=== PATIENT | female | born 1940 | race Caucasian/White ===

== ENCOUNTER 2024-01-12 13:29 | Outpatient (AMB) | payer MEDICARE, SELFPAY ==
[2024-01-12 13:35] VITALS: BP 136/80; PULSE 60; BMI 23.1
--- NOTE | 2024-01-12 13:35 | A.OFFVIS_ITS ---
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 Intake Note: New patient dx HTN had afib last 2012 but had ablation in [place] Display Coordinator Required: No Allergies No Known Allergies Allergy (Verified 01/12/24 13:40) Medication List - Last Reconciled 01/12/24 by Jose Urias MD amlodipine 5 mg PO DAILY aspirin 81 mg PO DAILY irbesartan 300 mg PO DAILY magnesium glycinate mg PO metoprolol tartrate 50 mg PO BID multivitamin 1 tab PO DAILY red yeast rice 600 mg PO DAILY turmeric root extract 1,000 mg PO DAILY HPI Comments Details: Thank you for referring Fred in cardiology consultation today for management of hypertension as well as prior history of atrial fibrillation. She has a pleasant 83-year-old active woman with no significant current symptoms. She has been noticing elevated blood pressure over the last few months. She has longstanding history of hypertension and is currently on triple therapy including a irbesartan 300 mg daily, amlodipine 5 mg daily as well as metoprolol 50 mg b.i.d.. In the past amlodipine was increased in late fall last year which led to leg edema and then reduction amlodipine this back to 5 mg daily. She has been noticing seeing frequently a blood pressure which she measures only in the morning after she takes medication in the 150 systolic range. She is concerned about these findings and wants to discuss further treatment options. She denies any recent changes in health. Denies any symptoms of exertional chest pain or shortness of breath. She has had history of atrial fibrillation which is highly symptomatic undergoing an ablation 2012 and since then she has not had any recurrent episodes. She has currently not on any oral anticoagulant therapy. She is on aspirin therapy. She has never had any prior vascular events. Did have a TIA in the past and this was due to atrial fibrillation she was told at that time. [facility] Medical History Paroxysmal atrial fibrillation HTN (hypertension) Hx-TIA (transient ischemic attack) Surgical History History of cardiac radiofrequency ablation Family History Father HTN (hypertension) Stroke Mother HTN (hypertension) Social History Patient Tobacco Use Status: Never used Tobacco Review of Systems Const Denies chills, Denies daytime sleepiness, Denies fatigue, Denies fever(s), Denies frequent falls, Denies poor appetite, Denies snoring, Denies stops breathing during sleep, Denies weakness, Denies weight gain and Denies weight loss Eyes Denies loss of vision ENT Denies dizziness and Denies hearing loss Card Denies chest pain, Denies claudication, Denies leg edema, Denies lightheadedness, Denies palpitations, Denies dyspnea, Denies dyspnea on exertion and Denies orthopnea Resp Denies cough, Denies excessive phlegm production, Denies dyspnea, Denies dyspnea on exertion, Denies snoring and Denies wheezing GI Denies abdominal pain, Denies hematochezia, Denies change in bowel habits, Denies nausea and Denies vomiting Denies urinary frequency and Denies dysuria Musc Denies arthralgias, Denies muscle weakness, Denies numbness and Denies other (frequent falls) Skin/Breast Denies nail changes and Denies rash Neuro Denies Abnormal speech present, Denies dizziness, Denies frequent falls, Denies loss of vision, Denies memory loss, Denies numbness and Denies weakness Psych Denies depression and Denies memory loss Endo Denies fatigue and Denies palpitations Scooter/Lymph Reports easy bruising and Reports other (anemia) Aller/Immun Denies wheezing Physical Exam Vital Signs: Last Vital Signs Pulse 60 01/12/24 13:35 BP 136/80 01/12/24 13:35 BMI result Body Mass Index 23.1 Const General: cooperative, comfortable, no acute distress, well developed, alert, awake, Physically active and well groomed Nutritional Appearance: average body habitus and well nourished Orientation/consciousness: patient oriented x3 Limitations: no limitations HEENT Head: Yes normocephalic and Yes atraumatic Neck Neck: Yes trachea midline, Yes supple and Yes no JVD Resp Effort & Inspection: normal respiratory effort Auscultation: clear to auscultation bilaterally Cardio Jugular venous distension: no JVD Palpation: normal PMI Rate: regular rate Rhythm: regular rhythm Heart sounds: S1 normal heart sound present, S2 normal heart sound present, no click, no gallops, no murmurs and no rubs GI Auscultation: normal bowel sounds Skin General skin exam: no rashes or lesions noted Neuro General: patient oriented x3 and no focal motor deficits Speech: No Abnormal speech present Extrem General: Yes no clubbing, cyanosis or edema Office Procedures EKG Details: EKG shows normal sinus rhythm with first-degree AV block with QS pattern in lead V1 V2 which could suggest anteroseptal infarct versus lead placement. [id number], Complete Assessment & Plan Assessment & Plan (1) HTN (hypertension): Code(s): I10 - Essential (primary) hypertension Category: Medical Plan: Hypertension which seems to be elevated with uncontrolled blood pressure at this point time. Management of hypertension was discussed. She has not tolerated higher dose of amlodipine in the past. Will continue current therapy and would add hydrochlorothiazide 12.5 mg to her regimen. Advise follow-up basic metabolic profile in 1-2 weeks time. Also recommend to monitor blood pressure at home various different times during the day and maintain a log and present to me in the next visit in 6 weeks time. I have advised her to undergo an echocardiogram to evaluate for LV systolic and diastolic function to evaluate for biatrial chamber size. Further treatment based on the findings. (2) Paroxysmal atrial fibrillation: Comment: Status post ablation, 2013. No clinical recurrence since then Code(s): I48.0 - Paroxysmal atrial fibrillation Category: Medical Plan: Prior history of paroxysmal atrial fibrillation with ablation 2012 with resolved symptoms. CHADSVASc score of 6, given her prior history of TIA. She is at high risk for recurrent thromboembolic complication. Aspirin is not an adequate prophylaxis. This was discussed with her. Consider oral anticoagulation therapy with Eliquis 5 mg b.i.d. given similar bleeding risk to aspirin and much superior thromboembolic protection. This was discussed with her. She will think about it. Continue aggressive blood pressure control as above. Will o btain echocardiogram as above. Avoidance of stimulants was discussed. Advised to call me with any new symptoms. Will follow up in the clinic in 6 weeks time, sooner p.r.n.. Thank you for allowing me to partake in her care Orders: Orders CA echo transthoracic complete Today I10 - Essential (primary) hypertension Medications: New hydrochlorothiazide 12.5 mg PO DAILY 30 tabs 5RF I10 - Essential (primary) hypertension Coding Level of Care Code New Pt Level 4 (99019) Diagnoses HTN (hypertension) I10 Paroxysmal atrial fibrillation I48.0 CPT Codes EKG - CPT: 04814-[id number], Complete ([id number])
== END 2024-01-12 14:25 | disposition home or self-care (01) ==
PROVIDERS: PCP Internal Medicine; Visit Provider Internal Medicine Cardiovascular Disease
DX: I10 Essential (primary) hypertension (principal); I48.0 Paroxysmal atrial fibrillation
CPT/HCPCS: 93010; 99204

== ENCOUNTER → 2024-01-12 13:29 | Outpatient (BNVA) | payer MEDICARE, SELFPAY | PROVIDERS: PCP Internal Medicine; Visit Provider Internal Medicine Cardiovascular Disease | DX: I48.0 Paroxysmal atrial fibrillation (principal); I10 Essential (primary) hypertension | CPT/HCPCS: 93005; 99202 ==

== ENCOUNTER → 2024-02-24 12:39 | Outpatient (REF) | payer MEDICARE, SELFPAY ==
--- NOTE | 2024-02-24 12:49 | CA_ITS ---
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 The visually estimated ejection fraction is >70%. - Evidence suggests grade II (moderate) diastolic dysfunction. - There is moderate septal and moderate basal asymmetric hypertrophy. - No obvious valvular pathology seen on this study. Findings Left Ventricle Normal left ventricular cavity size. The left ventricular systolic function is hyperdynamic. The visually estimated ejection fraction is >70%. There is no evidence of regional wall motion abnormalities. Evidence suggests grade II (moderate) diastolic dysfunction. There is moderate septal and moderate basal asymmetric hypertrophy. Right Ventricle Normal right ventricular cavity size and systolic function. Atria Both atria are normal in size. Aortic Valve There is a normal trileaflet aortic valve. There is no aortic valve stenosis. There is no aortic valve regurgitation. Mitral Valve The mitral valve appears normal. There is trace mitral valve regurgitation. There is no mitral valve stenosis. Pulmonic Valve The pulmonic valve is likely normal. Tricuspid Valve Normal tricuspid valve structure. There is mild tricuspid valve regurgitation. There is no evidence of pulmonary hypertension. Great Vessels The asc aorta is normal in size. Venous The inferior vena cava is normal in size and collapses greater than 50% with inspiration. Pericardium/Pleural There is no evidence of pericardial effusion. Prior Study Comparison No prior study available for comparison. Recommendations, Care & Conclusions No obvious valvular pathology seen on this study. Measurements 2D Linear Measurements IVSd: 1.04 0.6-0.9/0.6-1.0 cm LVIDd: 4.45 3.9-5.3/4.2-5.9 cm LVIDd Index: 2.65 2.4-3.2/2.2-3.1 cm/m2 LVIDs: 2.35 2.0-3.6 cm LVPWd: 0.79 0.7-1.1 cm LA Diam: 3.60 2.7-3.8/3.0-4.0 cm LAIDs Index: 2.14 1.5-2.3 cm/m2 LV Mass: 165.81 67-162/88-224 g LV Mass Index: 98.70 43-95/49-115 g/m2 LVOT Diam: 1.90 3.0+(-)1.3 cm 2D Systolic Function EF 4C: 74.70 >55% EF 2C: 74.00 >55% EF BiP: 72.80 >55% Mitral Valve MV Pk E: 1.01 MV PK A: 0.61 MV Decel Time: 173.00 E/A: 1.60 E'Lateral: 7.18 E'Medial: 4.57 E/E' Med: 22.10 E/E' Lat: 14.10 PHT: 51.00 MVA PHT: 4.31 Decel Hunt: 5.84 Aortic Valve AoV Pk Davidson: 1.45 AoV Mn Davidson: 1.07 AoV VTI: 0.38 AoV Pk Grad: 8.00 Aov Mn Grad: 5.00 DEONDRE Cont.VTI: 2.71 LVOT LVOT Pk Davidson: 1.21 LVOT Mn Davidson: 0.94 LVOT VTI: 0.36 LVOT Pk Grad: 6.00 LVOT Mn Grad: 4.00 LVOT Diam: 1.90 LVOT Area: 2.84 Diastolic Function MV Pk E: 1.01 MV Pk A: 0.61 E/A: 1.60 E'Medial: 4.57 E/E' Med: 22.10 E' Laterial: 7.18 E/E' Lat: 14.10 Right Ventricle TAPSE (mm): 19.50 TVS' Davidson: 11.40 Tricuspid Valve TR Pk Davidson: 2.13 TR Pk Grad: 18.00 RA Press: 3.00 RVSP: 21.00 Great Vessels Aorta Sinus of Valsalva: 2.94 2.0-3.[address] Ridge: 2.16 1.7-3.4 cm Ao Asc: 2.80 2.1-3.4 cm Updated in Other Vendor System with Status of Final Neo Hoyt MD electronically signed on 02/26/2024 10:40:10 AM with status of Final
== END ==
LOC: HO.CARD 12:39
PROVIDERS: Visit Provider Internal Medicine Cardiovascular Disease
DX: I10 Essential (primary) hypertension (principal)
CPT/HCPCS: 93306

== ENCOUNTER → 2024-02-24 12:49 | Outpatient (BNV) | payer MEDICARE, SELFPAY | PROVIDERS: Visit Provider Internal Medicine | DX: I36.1 Nonrheumatic tricuspid (valve) insufficiency (principal); I42.2 Other hypertrophic cardiomyopathy | CPT/HCPCS: 93306 ==

== ENCOUNTER 2024-02-28 12:40 | Outpatient (AMB) | payer MEDICARE, SELFPAY ==
--- NOTE | 2024-02-28 12:42 | MHC.OFFVIS ---
Vital Signs 02/28/24 12:43 Height 5 ft 5 in Weight 136 lb 10.986 oz BMI 22.7 BP 128/82 Blood Pressure Location Lt brachial Position Sitting Pulse 76 Intake Visit Reasons: 6 wk f/up Intake Note: 6 week follow-up feeling good Photoradio Operator Required: No Beam Department Supervisor: Beam Department Supervisor Present Accompanied by: Spouse Allergies No Known Allergies Allergy (Verified 01/12/24 13:40) Medication List - Last Reconciled 02/28/24 by Jose Urias MD amlodipine 5 mg PO DAILY aspirin 81 mg PO DAILY cholecalciferol (vitamin D3) 25 mcg PO DAILY hydrochlorothiazide 12.5 mg PO DAILY irbesartan 300 mg PO DAILY magnesium glycinate mg PO metoprolol tartrate 50 mg PO BID multivitamin 1 tab PO DAILY red yeast rice 600 mg PO DAILY turmeric root extract 1,000 mg PO DAILY HPI Comments Details: Vandana comes for follow-up. Since starting hydrochlorothiazide she says a blood pressure being in the 130s. She had been doing well. Recent echocardiogram shows hyperdynamic LVEF greater than 70% with basal ventricular hypertrophy with grade 2 diastolic dysfunction. She has no new cardiac symptoms. Denies any worsening shortness of breath, orthopnea, PND, leg edema. Denies any prolonged palpitation irregular heartbeat. Denies any exertional chest pain. No bleeding issues or new neurologic events. She has not started Eliquis therapy. [facility] Medical History Paroxysmal atrial fibrillation HTN (hypertension) Hx-TIA (transient ischemic attack) Surgical History History of cardiac radiofrequency ablation Family History Father HTN (hypertension) Stroke Mother HTN (hypertension) Social History Patient Tobacco Use Status: Never used Tobacco Review of Systems Const Denies chills, Denies fatigue, Denies fever(s), Denies frequent falls, Denies weakness, Denies weight gain and Denies weight loss ENT Denies dizziness Card Denies chest pain, Denies leg edema, Denies lightheadedness, Denies palpitations, Denies dyspnea, Denies dyspnea on exertion, Denies orthopnea and Denies other (loss of consciousness) Resp Denies cough, Denies dyspnea and Denies dyspnea on exertion GI Denies hematochezia and Denies change in stool character Musc Denies abnormal gait, Denies muscle weakness, Denies numbness, Denies radiating pain into limb and Denies tingling Neuro Denies Abnormal speech present, Denies abnormal gait, Denies dizziness, Denies frequent falls, Denies numbness, Denies tingling and Denies weakness Endo Denies fatigue and Denies palpitations Physical Exam Vital Signs: Last Vital Signs Pulse 76 02/28/24 12:43 BP 128/82 02/28/24 12:43 BMI result Body Mass Index 22.7 Const General: cooperative, comfortable, no acute distress, well developed, alert, awake, Physically active and well groomed Nutritional Appearance: average body habitus and well nourished Orientation/consciousness: patient oriented x3 Limitations: no limitations HEENT Head: Yes normocephalic and Yes atraumatic Neck Neck: Yes trachea midline, Yes supple and Yes no JVD Resp Effort & Inspection: normal respiratory effort Auscultation: clear to auscultation bilaterally Cardio Jugular venous distension: no JVD Palpation: normal PMI Rate: regular rate Rhythm: regular rhythm Heart sounds: S1 normal heart sound present, S2 normal heart sound present, no click, no gallops, no murmurs and no rubs GI Auscultation: normal bowel sounds Skin General skin exam: no rashes or lesions noted Neuro General: patient oriented x3 and no focal motor deficits Speech: No Abnormal speech present Extrem General: Yes no clubbing, cyanosis or edema Assessment & Plan Assessment & Plan (1) Paroxysmal atrial fibrillation: Comment: Status post ablation, 2012. No clinical recurrence since then Code(s): I48.0 - Paroxysmal atrial fibrillation Category: Medical Plan: Highly symptomatic paroxysmal atrial fibrillation without any obvious clinical recurrence since ablation. She is currently also on metoprolol therapy. Continue metoprolol therapy avoidance of stimulants was discussed. No indication for antiarrhythmic drug therapy unless she has recurrence. We discussed about different times of atrial fib and pathophysiology associated with it. Stroke risk was discussed. I strongly encouraged her to start taking oral anticoagulation therapy with Eliquis 5 mg b.i.d.. Similar bleeding risk to aspirin by trial data as well as much superior efficacy in reducing stroke risk was discussed with her. She wants to think about it. I have given her written prescription (2) HTN (hypertension): Code(s): I10 - Essential (primary) hypertension Category: Medical Plan: Hypertension with mild hypertensive heart disease without overt signs of congestive heart failure with grade 2 diastolic dysfunction. Importance of good blood pressure control was discussed. Continue current therapy. Advised to continue monitor blood pressure at home maintain a log. Goal blood pressure less than 130/84. Low-salt diet was discussed. Will follow up in the clinic in 1 year's time, sooner p.r.n.. Thank you for allowing me to partake in her care Medications: New apixaban (Eliquis) 5 mg PO BID 60 tabs 11RF Coding Level of Care Code Est Pt Level 4 (07894) Diagnoses Paroxysmal atrial fibrillation I48.0 HTN (hypertension) I10
[2024-02-28 12:43] VITALS: BP 128/82; PULSE 76; BMI 22.7
== END 2024-02-28 13:50 | disposition home or self-care (01) ==
PROVIDERS: PCP Internal Medicine; Visit Provider Internal Medicine Cardiovascular Disease
DX: I48.0 Paroxysmal atrial fibrillation (principal); I10 Essential (primary) hypertension
CPT/HCPCS: 99214

== ENCOUNTER → 2024-02-28 12:40 | Outpatient (BNVA) | payer MEDICARE, SELFPAY | PROVIDERS: PCP Internal Medicine; Visit Provider Internal Medicine Cardiovascular Disease | DX: I48.0 Paroxysmal atrial fibrillation (principal); I10 Essential (primary) hypertension | CPT/HCPCS: 99212 ==

== ENCOUNTER 2025-06-04 10:40 | Outpatient (AMB) | payer MEDICARE, SELFPAY ==
--- NOTE | 2025-06-04 10:48 | MHC.OFFVIS ---
Vital Signs 06/04/25 10:49 Height 5 ft 5 in Weight 138 lb 14.259 oz BMI 23.1 BP 144/76 H Blood Pressure Location Lt brachial Position Sitting Pulse 64 Intake Visit Reasons: 1 yr followup w/ekg dx: paf Intake Note: 1 year follow-up with ekg afib feeling good Tare Weigher Required: No Allergies No Known Allergies Allergy (Verified 01/12/24 13:40) Medication List - Last Reconciled 06/04/25 by Jose Urias MD amlodipine 5 mg PO DAILY apixaban (Eliquis) 5 mg PO BID cholecalciferol (vitamin D3) 25 mcg PO DAILY hydrochlorothiazide 12.5 mg PO DAILY irbesartan 300 mg PO DAILY metoprolol tartrate 50 mg PO BID multivitamin 1 tab PO DAILY HPI Comments Details: Vandana comes for follow-up, accompanied by her son. Patient denies any cardiac symptoms. She says she remains very very active and has no cardiac symptoms. No prolonged palpitation irregular heartbeat. She has stopped taking her Eliquis because she found that it was not creating any effect in her. She is only taking baby aspirin a day. She has not had any bleeding issues or neurologic events. She has had no exertional chest pain. No shortness of breath, orthopnea, PND. She says blood pressure is generally been well controlled mostly readings less than systolic 140. [facility] Medical History Paroxysmal atrial fibrillation HTN (hypertension) Hx-TIA (transient ischemic attack) Surgical History History of cardiac radiofrequency ablation Family History Father HTN (hypertension) Stroke Mother HTN (hypertension) Social History Patient Tobacco Use Status: Never used Tobacco Review of Systems Const Denies chills, Denies fatigue, Denies fever(s), Denies frequent falls, Denies weakness, Denies weight gain and Denies weight loss ENT Denies dizziness Card Denies chest pain, Denies leg edema, Denies lightheadedness, Denies palpitations, Denies dyspnea, Denies dyspnea on exertion, Denies orthopnea and Denies other (loss of consciousness) Resp Denies cough, Denies dyspnea and Denies dyspnea on exertion GI Denies hematochezia and Denies change in stool character Musc Denies abnormal gait, Denies muscle weakness, Denies numbness, Denies radiating pain into limb and Denies tingling Neuro Denies Abnormal speech present, Denies abnormal gait, Denies dizziness, Denies frequent falls, Denies numbness, Denies tingling and Denies weakness Endo Denies fatigue and Denies palpitations Physical Exam Vital Signs: Last Vital Signs Pulse 64 06/04/25 10:49 BP 144/76 H 06/04/25 10:49 BMI result Body Mass Index 23.1 Const General: cooperative, comfortable, no acute distress, well developed, alert, awake, Physically active and well groomed Nutritional Appearance: average body habitus and well nourished Orientation/consciousness: patient oriented x3 Limitations: no limitations HEENT Head: Yes normocephalic and Yes atraumatic Neck Neck: Yes trachea midline, Yes supple and Yes no JVD Resp Effort & Inspection: normal respiratory effort Auscultation: clear to auscultation bilaterally Cardio Jugular venous distension: no JVD Palpation: normal PMI Rate: regular rate Rhythm: regular rhythm Heart sounds: S1 normal heart sound present, S2 normal heart sound present, no click, no gallops, no murmurs and no rubs GI Auscultation: normal bowel sounds Skin General skin exam: no rashes or lesions noted Neuro General: patient oriented x3 and no focal motor deficits Speech: No Abnormal speech present Extrem General: Yes no clubbing, cyanosis or edema Office Procedures EKG Details: EKG shows normal sinus rhythm with sinus arrhythmias with first-degree AV block with poor R-wave progression most likely lead placement [id number], Complete Assessment & Plan Assessment & Plan (1) Paroxysmal atrial fibrillation: Comment: Status post ablation, 2013. No clinical recurrence since then Code(s): I48.0 - Paroxysmal atrial fibrillation Category: Medical Plan: Paroxysmal atrial fibrillation this elderly woman without any new symptoms. She had ablation 2013 in his no recurrence since then. She had prior history of TIA. Given her multiple risk factors she is strongly advised oral anticoagulation therapy with Eliquis to reduce further risk. We discussed the pros and cons of oral anticoagulant therapy and compared to aspirin. She understands. Avoidance of stimulants was discussed. Advised to call me with any new symptoms. Continue metoprolol therapy. Stress mitigation strategies were discussed. (2) HTN (hypertension): Code(s): I10 - Essential (primary) hypertension Category: Medical Plan: Hypertension with borderline blood pressure but mostly at home a blood pressure below systolic 140. Given her age I think systolic 140 is an adequate target for her. I would not over corrected blood pressure she would get more orthostatic symptoms. Continue current therapy. Low-salt diet was discussed. Advised to continue monitor blood pressure at home and if it is persistently elevated above systolic 150 to call my office. Will follow up in the clinic in 1 year's time, sooner PRN. Thank you for allowing me to partake in her care Medications: New aspirin (Ecotrin Low Strength) 81 mg PO DAILY 30 tabs 1RF Coding Level of Care Code Est Pt Level 4 (96933) Complex EM visit Add On G2211 Diagnoses Paroxysmal atrial fibrillation I48.0 HTN (hypertension) I10 CPT Codes EKG - CPT: 33654-[id number], Complete ([id number])
[2025-06-04 10:49] VITALS: BP 144/76; PULSE 64; BMI 23.1
--- OUTSIDE RECORDS SUMMARY | 2025-06-04 13:02 | XMS_ITS | Clinical Summary ---
Author Organization [facility] Address [address] [place] [address] Phone Care Team Providers Care Burlap Bag Sewer Name Role Phone Robert Ewing MD Primary Care Provider Allergies Active Allergy Reactions Criticality Noted Date Comments Aliskiren 12/15/2021 Simvastatin 12/15/2021 Medications No known medications Encounters Date Type Department Care Team Description 05/21/2025 2:30 PM EDT Office Visit [facility] Orthopedics & Sports Medicine [address] [place] [id number] Jasbir Davey MD Sciatica of left side (Primary Dx); Left hip pain; Osteoarthritis of left hip, unspecified osteoarthritis type 05/21/2025 10:39 AM EDT - 05/21/2025 11:59 PM EDT Hospital Encounter [address] [id number] Jasbir Davey MD Discharge Disposition: Home or Self Care from Last 3 Months Social History Tobacco Use Types Packs/Day Years Used Date Smoking Tobacco: Never Assessed Education Answer Date Recorded Are you interested in more education? Not on taj e 12/06/2022 Are you concerned about learning? Not on file 12/06/2022 No 12/06/2022 No 12/06/2022 Digital Access Answer Date Recorded No 12/27/2022 No 12/27/2022 Reliable internet access at home? Not on file 12/27/2022 Device with a working camera? Not on file Comments Unknown Sex and Gender Information Value Date Recorded Sex Assigned at Not on file Legal Sex Female 6:36 PM EST Gender Identity Not on file Sexual Orientation Not on file Last Filed Vital Signs Vital Sign Reading Time Taken Comments Blood Pressure 135/72 12/07/2011 10:55 AM EDT Pulse 74 12/07/2011 10:55 AM EDT Temperature - - Respiratory Rate - - Oxygen Saturation - - Inhaled Oxygen Concentration - - Weight 59 kg (130 lb) 12/15/2021 11:23 AM EDT Height 165.1 cm (5' 5 ) 12/15/2021 11:23 AM EDT Body Mass Index 21.63 12/15/2021 11:23 AM EDT Plan of Treatment Health Maintenance Due Date Last Done Comments Adult Td,Tdap Booster 1940 DEPRESSION SCREENING 1952 PNEUMOCOCCAL VACCINES (50+ years) (1 of 1 - PCV) 1990 ZOSTER VACCINES (1 of 2) 1990 OSTEOPOROSIS SCREENING INITI AL (ONE-TIME) 2005 RSV VACCINE (1 - 1-dose 75+ series) 2015 INFLUENZA VACCINE (#1) 2025 COVID-19 VACCINE (3 - 2024-2 6 season) 2025 03/26/2022, 03/05/2022 HEPATITIS A VACCINES Aged Out No long er eligible based on patient's age to complete this topic HIB VACCINES Aged Out No longer eligi ble based on patient's age to complete this topic MENINGOCOCCAL VACCINES (ACWY) Aged Out No longer eligible based on patient's age to complete this topic MENINGOCOCCAL VACCINES (B) Aged Out N o longer eligible based on patient's age to complete this topic Medical Devices Not on file Procedures Procedure Name Priority Date/Time Associated Diagnosis Comments XR HIP 1 VW LEFT PLUS PELVIS Routine 05/21/2025 10:47 AM EDT Left hip pain from Last 3 Months Results * XR HIP 1 VW LEFT PLUS PELVIS (05/21/2025 10:47 AM EDT) Narrative SYSTEMGENERATED, DOCUMENTATION - 05/21/2025 10:47 AM EDT This image report has been auto-finalized and has not been read by a Radiologist. Interpretation has been included in the provider encounter note for this date of service. Jasbir Davey MD IMG XR PELVIS Final R esult from Last 3 Months Insurance MEDICARE PART A & B [employer] SUPPLEMENT MEDICARE PART A & B [employer] SUPPLEMENT MEDICARE PART A & B [facility] SUPPLEMENT MEDICARE PART A & B [employer] SUPPLEMENT MEDICARE PART A & B [employer] SUPPLEMENT MEDICARE PART A & B [employer] SUPPLEMENT MEDICARE PART A & B [employer] SUPPLEMENT MEDICARE PART A & B [employer] SUPPLEMENT MEDICARE PART A & B [employer] SUPPLEMENT Care Teams Burlap Bag Sewer Relationship Specialty Start Date End Date Robert Ewing MD [address] [place] [address] PCP - General Internal Medicine 12/15/21 Additional Source Comments The information contained in this document represents components of the legal health record. It is not the complete legal health record.[facility]
--- OUTSIDE RECORDS SUMMARY | 2025-06-04 13:02 | XMS_ITS | Clinical Summary ---
Author Organization [facility] Address [address] [address] Phone Care Team Providers Care Collar Baster Name Role Phone Robert Ewing MD Primary Care Provider [phone] Allergies Active Allergy Reactions Criticality Noted Date Comments Aliskiren 12/15/2021 Simvastatin 12/15/2021 Medications amLODIPine (NORVASC) 5 MG tablet Take 1 tablet by mouth 3 Active Aspirin 81 MG capsule Take 81 mg by mouth 3 Active cefpodoxime (VANTIN) 200 MG tablet 0 Refills, Maintenance, 08/14/24 2:09:00 PM EST, Partial fill upon patient request if the prescription is for a schedule II opioid drug. 5 Active chlorthalidone 25 MG tablet Take 25 mg by mouth 4 Active irbesartan (AVAPRO) 300 MG tablet Take 1 tablet by mouth 5 Active metoprolol tartrate (LOPRESSOR) 50 MG tablet Take 50 mg by mouth 3 Active Ascorbic Acid (vitamin C) 100 MG tablet Take 100 mg by mouth 1 (one) time each day Active Cholecalciferol (Vitamin D3) 50 MCG (1999) tablet Take by mouth Active Active Problems Problem Noted Date Diagnosed Date Polyp of colon 10/06/2024 Paroxysmal atrial fibrillation 10/06/2024 Insomnia 10/06/2024 Hypertensive disorder 10/06/2024 History of cerebrovascular disease 10/06/2024 Chronic kidney disease stage 3A 10/06/2024 Transient cerebral ischemia 10/06/2024 Encounters Date Type Department Care Team Description 05/09/2025 1:00 PM EDT Office Visit [facility] [address] [phone] Yao Quintana MD Stage 3 chronic kidney disease, not otherwise specified (HCC) (Primary Dx); Hypertension; Microalbuminuria 05/07/2025 Orders Only [facility] [address] [phone] Yao Quintana MD from Last 3 Months Family History Medical History Relation Comments respiratory disease Mother Breast cancer Sister Relation Status Comments Mother Sister Social History Tobacco Use Types Packs/Day Years Used Date Smoking Tobacco: Never Smokeless Tobacco: Never Tobacco Cessation:Counseling Given: Not Answered Comments Unknown Sex and Gender Information Value Date Recorded Sex Assigned at Not on file Legal Sex Female 1:19 PM EST Gender Identity Not on file Sexual Orientation Not on file Last Filed Vital Signs Vital Sign Reading Time Taken Comments Blood Pressure 152/63 05/09/2025 12:58 PM EDT Pulse 65 05/09/2025 12:58 PM EDT Temperature - - Respiratory Rate - - Oxygen Saturation 98% 05/09/2025 12:58 PM EDT Inhaled Oxygen Concentration - - Weight 65.3 kg (144 lb) 05/09/2025 12:58 PM EDT Height - - Body Mass Index - - Plan of Treatment Upcoming Encounters Date Type Department Care Team (Late st Contact Info) Description 11/08/2025 2:45 PM EDT Office Visit [facility] [address] [phone] Yao Quintana MD [address] [phone] Health Maintenance Due Date Last Done Comments Pneumococcal Vaccine: 50+ Ye ars (1 of 2 - PCV) 1959 Influenza Vaccine (#1) 2025 Hepatitis B Vaccine Aged Out No longe r eligible based on patient's age to complete this topic Procedures Procedure Name Priority Date/Time Associated Diagnosis Comments RENAL FUNCTION PANEL Routine 05/07/2025 10:55 AM EDT from Last 3 Months Results * (ABNORMAL) Renal Function Panel (05/07/2025 10:55 AM EDT) Glucose 92 70 - 99 mg/dL [facility] BUN 31(H) 8 - 27 mg/dL [facility] Creatinine 1.60(H) 0.57 - 1.00 mg/dL [facility] eGFR CKD-EPI CR 2020 31(L) >59 mL/min/1.7 3 [facility] BUN/Creatinine Ratio 19 12 - 28 [facility] Sodium 134 134 - 144 mmol/L [facility] Potassium 4.4 3.5 - 5.2 mmol/L [facility] Chloride 96 96 - 106 mmol/L [facility] Bicarbonate (CO2) 20 20 - 29 mmol/L [facility] Calcium 9.9 8.7 - 10.3 mg/dL [facility] Albumin 4.2 3.7 - 4.7 g/dL [facility] Phosphorus 3.1 3.0 - 4.3 mg/dL [facility] 05/07/2025 10:5 5 AM EDT 05/07/2025 Yao Quintana MD LAB BLOOD ORDERABLES Final Resul t [facility] [address] [place] [address] from Last 3 Months Insurance Medicare [facility] Care Teams Collar Baster Relationship Specialty Start Date End Date Robert Ewing MD [address] [place] [address] PCP - General Internal Medicine 08/21/24
== END 2025-06-04 11:27 | disposition home or self-care (01) ==
LOC: HO.HCS 10:41
PROVIDERS: PCP Internal Medicine; Visit Provider Internal Medicine Cardiovascular Disease
DX: I48.0 Paroxysmal atrial fibrillation (principal); I10 Essential (primary) hypertension
CPT/HCPCS: 93010; 99214; G2211

== ENCOUNTER → 2025-06-04 10:40 | Outpatient (BNVA) | payer MEDICARE, SELFPAY | PROVIDERS: PCP Internal Medicine; Visit Provider Internal Medicine Cardiovascular Disease | DX: I10 Essential (primary) hypertension (principal); I48.0 Paroxysmal atrial fibrillation | CPT/HCPCS: 93005; 99212 ==